=== PATIENT | male | born 1975 | race African-American/Black ===

== ENCOUNTER 2017-03-03 18:16 | Emergency (ER) | payer MEDICAID ==
[~2017-03-03] VITALS: Ht 182.9 cm; Wt 137.0 kg
[2017-03-03] MEDS ORDERED: IBUPROFEN 600MG TABLET PO ONE (19:00)
[2017-03-03] MEDS ORDERED: CLONIDINE 0.1MG TABLET PO ONE (23:45)
[2017-03-04 11:45] VITALS: BP 130/65
== END 2017-03-04 11:53 | disposition home or self-care (01) ==
LOC: ER 20:04
DX: M19.072 Primary osteoarthritis, left ankle and foot (principal); M17.12 Unilateral primary osteoarthritis, left knee; I10 Essential (primary) hypertension
CPT/HCPCS: 73560; 73610; 99284

== ENCOUNTER 2017-03-04 11:55 | Emergency (ER) | payer MEDICAID ==
[~2017-03-04] VITALS: Ht 190.5 cm; Wt 152.0 kg
[2017-03-04] MEDS ORDERED: IBUPROFEN 800MG TABLET PO ONE (13:30)
[2017-03-04 15:03] LABS: BASOPHILS % 0.2 % (0.0-2.0); EOSINOPHILS % 0.4 % (0.0-5.0); HEMATOCRIT. 42.5 % (42.0-52.0); HEMOGLOBIN. 13.9 g/dL (14.0-18.0); LYMPHOCYTES % 12.8 % (20.0-50.0); MEAN CORPUSCULAR HEMOGLOBIN 24.4 pg (28.0-32.0); MEAN CORPUSCULAR VOLUME 74.7 fL (80.0-94.0); MEAN PLATELET VOLUME 8.3 fl (7.4-10.4); NEUTROPHILS % 78.6 % (40.0-76.0); PLATELET 279 x1000/uL (130-400); RED BLOOD CELL COUNT 5.69 mill/uL (4.7-6.1); RED CELL DISTRIBUTION WIDTH 17.3 % (11.6-14.6)
[2017-03-04 15:07] LABS: CHLORIDE 101 mEq/L (98-107)
[2017-03-04 15:11] LABS: CARBON DIOXIDE 27 mEq/L (21-32); ETHANOL BLOOD < 10 mg/dL
[2017-03-04 16:46] LABS: GLUCOSE URINE 1+ (NEGATIVE); KETONES URINE NEGATIVE (NEGATIVE); LEUKOCYTE ESTERASE URINE 1+ (NEGATIVE); NITRITE URINE NEGATIVE (NEGATIVE); OCCULT BLOOD URINE 1+ (NEGATIVE); PH URINE 5.5 (4.5-8.0); PROTEIN URINE 4+ (NEGATIVE); SPECIFIC GRAVITY URINE 1.028 (1.005-1.030); UROBILINOGEN URINE 0.2 E.U./dL (0.2-1.0)
[2017-03-04 16:51] LABS: CLARITY URINE SL HAZY (CLEAR); COLOR URINE YELLOW (YELLOW)
[2017-03-04 16:56] LABS: *AMPHETAMINES SCREEN URINE NEGATIVE (NEGATIVE); *BARBITURATES SCREEN URINE NEGATIVE (NEGATIVE); *BENZODIAZEPINES SCREEN URINE NEGATIVE (NEGATIVE); *COCAINE SCREEN URINE NEGATIVE (NEGATIVE); CANNABINOID URINE SCREEN NEGATIVE (NEGATIVE); METHADONE URINE SCREEN NEGATIVE (NEGATIVE); OPIATES URINE SCREEN NEGATIVE (NEGATIVE); PHENCYCLIDINE URINE SCREEN NEGATIVE (NEGATIVE)
[2017-03-04 21:15] VITALS: BP 147/89
== END 2017-03-04 21:32 ==
LOC: ER 13:23
DX: R45.851 Suicidal ideations (principal); N17.9 Acute kidney failure, unspecified; R44.0 Auditory hallucinations; I10 Essential (primary) hypertension; F12.10 Cannabis abuse, uncomplicated; F11.10 Opioid abuse, uncomplicated; F14.10 Cocaine abuse, uncomplicated; M19.90 Unspecified osteoarthritis, unspecified site
CPT/HCPCS: 36415; 73560; 73600; 80053; 80305; 80307; 80329; 81001; 85025; 99285; G0482

== ENCOUNTER 2017-03-21 21:13 | Emergency (ER) | payer MEDICAID, OTHER ==
[~2017-03-21] VITALS: Ht 193 cm; Wt 150.0 kg
[2017-03-21] MEDS ORDERED: SODIUM CHLORIDE 0.9% 1,000 ML IV ONE (23:16)
[2017-03-21] MEDS ORDERED: FAMOTIDINE 20MG/2ML VIAL IV STA (23:16)
[2017-03-21] MEDS ORDERED: ONDANSETRON HCL 4MG/2ML VIAL IV STA (23:16)
[2017-03-21 23:43] LABS: BASOPHILS % 0.7 % (0.0-2.0); EOSINOPHILS % 0.6 % (0.0-5.0); HEMATOCRIT. 36.2 % (42.0-52.0); HEMOGLOBIN. 11.7 g/dL (14.0-18.0); LYMPHOCYTES % 15.3 % (20.0-50.0); MEAN CORPUSCULAR HEMOGLOBIN 24.1 pg (28.0-32.0); MEAN CORPUSCULAR VOLUME 74.7 fL (80.0-94.0); MEAN PLATELET VOLUME 8.2 fl (7.4-10.4); NEUTROPHILS % 75.4 % (40.0-76.0); PLATELET 303 x1000/uL (130-400); RED BLOOD CELL COUNT 4.85 mill/uL (4.7-6.1); RED CELL DISTRIBUTION WIDTH 17.7 % (11.6-14.6)
[2017-03-21 23:50] LABS: CHLORIDE 107 mEq/L (98-107)
[2017-03-21 23:59] LABS: CARBON DIOXIDE 25 mEq/L (21-32)
[2017-03-22] MEDS ORDERED: ONDANSETRON 4MG ODT PO ONE (00:15)
[2017-03-22] MEDS ORDERED: FAMOTIDINE 20MG TABLET PO ONE (00:15)
[2017-03-22 02:54] LABS: CLARITY URINE CLEAR (CLEAR); COLOR URINE YELLOW (YELLOW); KETONES URINE NEGATIVE (NEGATIVE); LEUKOCYTE ESTERASE URINE NEGATIVE (NEGATIVE); NITRITE URINE NEGATIVE (NEGATIVE); OCCULT BLOOD URINE 1+ (NEGATIVE); PH URINE 5.5 (4.5-8.0); PROTEIN URINE 3+ (NEGATIVE); SPECIFIC GRAVITY URINE 1.016 (1.005-1.030); UROBILINOGEN URINE 0.2 E.U./dL (0.2-1.0)
[2017-03-22] MEDS ORDERED: CLONIDINE 0.2MG TABLET PO ONE (04:15)
[2017-03-22] MEDS ORDERED: METOPROLOL TARTRATE 100MG TABLET PO ONE (04:30)
[2017-03-22 08:01] VITALS: BP 175/82
== END 2017-03-22 08:28 | disposition home or self-care (01) ==
LOC: ER 21:13
DX: A08.4 Viral intestinal infection, unspecified (principal); I10 Essential (primary) hypertension; D64.9 Anemia, unspecified
CPT/HCPCS: 36415; 71010; 80053; 81001; 83605; 83690; 85025; 87040; 99285; Q0162; Z7610; J7030

== ENCOUNTER 2017-11-18 14:25 | Emergency (ER) | payer MEDICAID, OTHER ==
[~2017-11-18] VITALS: Ht 190.5 cm; Wt 164.0 kg
[2017-11-18] MEDS ORDERED: SODIUM CHLORIDE 0.9% 1,000 ML IV ONE (15:28)
[2017-11-18 15:51] LABS: BASOPHILS % 0.7 % (0.0-2.0); EOSINOPHILS % 2.2 % (0.0-5.0); HEMATOCRIT. 41.8 % (42.0-52.0); HEMOGLOBIN. 13.8 g/dL (14.0-18.0); LYMPHOCYTES % 23.1 % (20.0-50.0); MEAN CORPUSCULAR HEMOGLOBIN 25.2 pg (28.0-32.0); MEAN CORPUSCULAR VOLUME 76.7 fL (80.0-94.0); MEAN PLATELET VOLUME 9.2 fl (7.4-10.4); MONOCYTES % 6.9 % (2.0-8.0); NEUTROPHILS % 67.1 % (40.0-76.0); PLATELET 172 x1000/uL (130-400); RED BLOOD CELL COUNT 5.45 mill/uL (4.7-6.1); RED CELL DISTRIBUTION WIDTH 16.9 % (11.6-14.6)
[2017-11-18 15:58] LABS: PROTHROMBIN TIME 10.5 sec (9.4-11.6)
[2017-11-18 15:59] LABS: CHLORIDE 99 mEq/L (98-107)
[2017-11-18 16:05] LABS: CREATINE KINASE 316 IU/L (39-308); TROPONIN I 0.09 ng/mL (0.00-0.04)
[2017-11-18] MEDS ORDERED: CLONIDINE 0.2MG TABLET PO NR (17:30)
[2017-11-18] MEDS ORDERED: ASPIRIN 81MG TABLET PO NR (17:30)
[2017-11-18] MEDS ORDERED: INSULIN REGULAR (HUMULIN R) 300UNITS/3ML SUBCUT NR (17:30)
[2017-11-18] MEDS ORDERED: HYDROCHLOROTHIAZIDE 25MG TABLET PO ONE (20:15)
[2017-11-18 22:32] VITALS: BP 215/133
== END 2017-11-18 22:44 | disposition home or self-care (01) ==
LOC: ER 15:48
DX: N18.9 Chronic kidney disease, unspecified (principal); I12.9 Hypertensive chronic kidney disease with stage 1 through stage 4 chronic kidney disease, or unspecified chronic kidney disease; E11.22 Type 2 diabetes mellitus with diabetic chronic kidney disease; E88.09 Other disorders of plasma-protein metabolism, not elsewhere classified; D50.9 Iron deficiency anemia, unspecified; E11.40 Type 2 diabetes mellitus with diabetic neuropathy, unspecified; E11.65 Type 2 diabetes mellitus with hyperglycemia; R79.89 Other specified abnormal findings of blood chemistry; R74.8 Abnormal levels of other serum enzymes; E66.01 Morbid (severe) obesity due to excess calories; Z91.14 Patient's other noncompliance with medication regimen; Z59.0 Homelessness
CPT/HCPCS: 36415; 71045; 80053; 82550; 83880; 84484; 85025; 85610; 93005; 99285; J1815; J7030